=== PATIENT | male | born 1945 | race Caucasian/White ===

== ENCOUNTER → 2017-06-10 | Outpatient (CLI) | payer OTHER, MEDICARE | LOC: FIMAGING 08:15 | PROVIDERS: ATTEND Internal Medicine | DX: K21.9 Gastro-esophageal reflux disease without esophagitis (principal) ==

== ENCOUNTER 2018-01-01 11:32 | Day surgery (SDC) | payer OTHER, MEDICARE ==
[2018-01-01] MEDS ORDERED: ceFAZolin 2 GM/SWFI 2 GM/20 ML SYR IVP ONE (11:45)
[2018-01-01] MEDS ORDERED: LR 1,000 ML IV ONE (11:47)
[2018-01-01] MEDS ORDERED: LIDOCAINE 1% 2 ML INJ ID PRN (11:47)
[2018-01-01] MEDS ORDERED: MIDAZOLAM 2 MG/2 ML VIAL IVP ONE (12:30)
--- NOTE | 2018-01-01 12:30 | PDANEPAE ---
ANE History of Present Illness 72 yo for repair incarcerated umbilical hernia ANE Past Medical History - Cardiovascular History Hx Hypertension: No Hx Arrhythmias: No Hx Chest Pain: No Hx Coronary Artery / Peripheral Vascular Disease: No Hx CHF / Valvular Disease: No Hx Palpitations: No - Pulmonary History Hx COPD: No Hx Asthma/Reactive Airway Disease: No Hx Recent Upper Respiratory Infection: No Hx Oxygen in Use at Home: No Hx Sleep Apnea: No Sleep Apnea Screening Result - Last Documented: Negative Pulmonary History Comment: seasonal allergies - Neurologic History Hx Cerebrovascular Accident: No Hx Seizures: No Hx Dementia: No - Endocrine History Hx Diabetes: No - Renal History Hx Renal Disorders: No - Liver History Hx Hepatic Disorders: No - Neurological & Psychiatric Hx Hx Neurological and Psychiatric Disorders: Yes Neurological / Psychiatric History Comment: bipolar diagnosed many years ago - Cancer History Hx Cancer: Yes Cancer History Comment: skin cancer - Congenital Disorder History Hx Congenital Disorders: No - GI History Hx Gastrointestinal Disorders: Yes Gastrointestinal History Comment: diverticulitis, colon resection - Chronic Pain History Chronic Pain: No - Surgical History Prior Surgeries: numerous orthopedic surgeries, left femur joe, cataracts , 2012 colon resection ANE Review of Systems Review of Systems: - Exercise capacity METS (RN): 6 METS ANE Patient History - Allergies Allergies/Adverse Reactions: No Known Allergies Allergy (Verified 08/23/12 12:40) - Home Medications Home medications: home medication list seen and reviewed Home Medications: Allopurinol [Allopurinol 300 MG (RX)] 300 mg PO HS 08/11/12 [Last Taken 12/31/17 ] Cholecalciferol Vit D3 [Vitamin D3 1000 units (OTC)] 1,000 units PO DAILY [Last Taken 01/01/18 06:45] Cyanocobalamin [Vitamin B12 1000 MCG (OTC)] 1,000 mcg PO DAILY 08/23/12 [Last Taken 01/01/18 06:45] Dha DAILY 01/01/18 [Last Taken 01/01/18 06:45] Divalproex ER 250 mg PO HS 01/01/18 [Last Taken 12/31/17] Phytonadione [Vitamin K] 01/01/18 [Last Taken 01/01/18 06:45] Zinc DAILY 01/01/18 [Last Taken 01/01/18 06:45] - NPO status NPO Since - Liquids (Date): 01/01/18 NPO Since - Liquids (Time): 07:00 NPO Since - Solids (Date): 12/31/17 NPO Since - Solids (Time): 19:00 - Smoking Hx Smoking Status: Never smoked ANE Labs/Vital Signs - Vital Signs Blood Pressure: 134/80 Heart Rate: 50 Respiratory Rate: 12 O2 Sat (%): 97 Height: 5 ft 6.5 in Weight: 74.616 kg ANE Physical Exam - Airway Neck exam: FROM Mallampati Score: Class 2 - Pulmonary Pulmonary: no respiratory distress - Cardiovascular Cardiovascular: regular rate and rhythym - ASA Status ASA Status: II ANE Anesthesia Plan Anesthesia Plan: general endotracheal anesthesia
[2018-01-01] MEDS ORDERED: BUPIVACAINE 0.5% 30 ML SDV ONE (12:45)
[2018-01-01] MEDS ORDERED: PROPOFOL/EMULSION 500 MG/50 ML BOTTLE IV ONE (13:01)
[2018-01-01] MEDS ORDERED: REMIFENTANIL HCL 1 MG VIAL ONE (13:01)
[2018-01-01] MEDS ORDERED: fentaNYL 100 MCG/2 ML INJ ONE (13:01)
--- NOTE | 2018-01-01 14:14 | POSTOPPROG ---
Post Op Note Date of Operation: 01/01/18 Surgeon: Tyler Thomason Social Work Program Coordinator: Jerome Anesthesiologist: Blanco Anesthesia: GET(General Endotracheal) Pre-op Diagnosis: Umbilical hernia Post-op Diagnosis: same Indication: Pain Procedure: Open repair of umbilical hernia Findings: No infarcted tissue Inf/Abcess present in the surg proc area at time of surgery?: No Depth: Deep Incisional (Fascial) EBL: Minimal Specimen(s): Umbilical hernia sac
[2018-01-01] MEDS ORDERED: ONDANSETRON 4 MG/2 ML VIAL IVP PRN (14:19)
[2018-01-01] MEDS ORDERED: PROMETHAZINE HCL 25 MG/ML INJ IVP PRN (14:19)
[2018-01-01] MEDS ORDERED: NALOXONE HCL 0.4 MG/ML INJ IVP PRN (14:19)
[2018-01-01] MEDS ORDERED: HYDROCODONE/APAP 5/325 TAB PO PRN (14:19)
[2018-01-01] MEDS ORDERED: fentaNYL 100 MCG/2 ML INJ IVP PRN (14:19)
--- NOTE | 2018-01-01 14:20 | POSTANESTH ---
Post Anesthetic Evaluation Cardiovascular Status: Normal, Stable Respiratory Status: Tx Decrease in SpO2 Level of Consciousness/Mental Status: Can Participate in Eval Pain Control: Adequate, Prn Tx Ordered Nausea/Vomiting Control: Adequate, Prn Tx Ordered Complications Possibly Related to Anesthesia: None Noted
[2018-01-01] MEDS ORDERED: HYDROCODONE/APAP 5/325 TAB ONE (14:36)
[2018-01-01 15:59] VITALS: BP 121/67
--- NOTE | 2018-01-06 17:20 | GOP ---
[f rep st] OPERATIVE REPORT DATE OF OPERATION: SURGEON: Tyler Thomason MD ENGINEERING GROUP LEADER: Lynette Cano, nurse practitioner. ANESTHESIOLOGIST: Dr. Simeon. PREOPERATIVE DIAGNOSIS: Incarcerated umbilical hernia. POSTOPERATIVE DIAGNOSIS: Incarcerated umbilical hernia. PROCEDURE PERFORMED: Repair of incarcerated umbilical hernia. FINDINGS: Patient was found to have a 2 cm umbilical hernia defect with some incarcerated preperiton eal fat. ESTIMATED BLOOD LOSS: Negligible. DESCRIPTION OF PROCEDURE: Patient was taken to the operating room where he received satisfactory gen eral endotracheal anesthesia by Dr. Simeon. He was placed in supine position, prepped and draped i n usual sterile fashion. An infraumbilical incision was made. Dissection extended down to the fascia. The inflamed umbilical hernia sac was dissected free from the surrounding subcutaneous tissue and off the back of the umbil ical skin. The sac was opened at the fascial level and it was amputated, along with some inflamed an d partially necrotic preperitoneal fat, which had been entrapped in the hernia. This was removed. N o evidence of any other entrapped tissues or problems intra-abdominally. The defect edges were freshened up and closed in a [id number] type 2-layer closure with 0 Surgil on mattress sutures. Wound was infiltrated with 0.5% Marcaine. Subcu was closed with 3-0 Vicryl and the skin with a 4-0 Monocryl subcuticular stitch. All layers were infiltrated with 0.5% Marcaine. DISPOSITION: He was taken to the recovery room in good condition. /[id number]/MODL
== END 2018-01-01 15:48 | disposition home or self-care (01) ==
LOC: FSGY 11:32
PROVIDERS: ATTEND Surgery
PROC: 0WQF0ZZ Repair Abdominal Wall, Open Approach (ICD-10-PCS; principal; 2018-01-01 12:45)
DX: K42.9 Umbilical hernia without obstruction or gangrene (principal); N40.1 Benign prostatic hyperplasia with lower urinary tract symptoms; M10.9 Gout, unspecified; E78.5 Hyperlipidemia, unspecified
CPT/HCPCS: J0690; J2250; J2704; J3010